=== PATIENT | male | born 1960 | race Caucasian/White ===

== ENCOUNTER 2017-04-02 10:25 | Inpatient (IN) | payer BC ==
[2017-03-13 12:59] VITALS: BMI 29.0
--- NOTE | 2017-03-13 13:32 | PAT Medication Instructions ---
Service Date Mar 13, 2017. Current Home Medication List [Lisinopril/Hctz], 1 TAB PO QAM Medication Instructions For Your Scheduled Surgery - Hold the following medications the morning of surgery: [Lisinopril/Hctz], 1 TAB PO QAM If you have any questions please call us at [phone] or [phone] or [phone]
--- NOTE | 2017-03-13 14:14 | DIAGNOSTIC IMAGING REPORT ---
CHEST PREADMISSION(PA/LAT) CLINICAL HISTORY: PAT preoperative evaluation COMPARISON STUDY: No previous studies for comparison. FINDINGS: The bones soft tissues and hemidiaphragms are normal. The cardiomediastinal silhouette is normal. The lungs are clear. The pulmonary vasculature is normal. IMPRESSION: Negative chest. The above report was generated using voice recognition software. It may contain grammatical, syntax or spelling errors. Electronically signed by: Eduardo Miles M.D. 03/13/2017 2:12 PM Dictated Date/Time: 03/13/2017 2:12 PM
[2017-03-13 14:26] LABS: BASO % 0.4 %; BASO ABS # 0.03 K/uL (0-0.2); COMPLETE YES; EOS % 3.6 %; HEMATOCRIT 44.5 % (42-52); IG% 0.4 %; LYMPH % 26.6 %; LYMPH ABS # 2.13 K/uL (1.2-3.4); MEAN CELL VOLUME 83.3 fL (80-100); MEAN CORPUSCULAR HEMOGLOBIN 29.2 pg (25-34); MEAN CORPUSCULAR HGB CONC 35.1 g/dl (32-36); MEAN PLATELET VOLUME 11.2 fL (7.4-10.4); MONO % 9.6 %; NEUT % 59.4 %; PLATELET COUNT 254 K/uL (130-400); RED BLOOD COUNT 5.34 M/uL (4.7-6.1)
[2017-03-13 14:33] LABS: BUN/CREATININE RATIO 38.4 (10-20); CALCIUM 9.4 mg/dl (8.5-10.1); CREATININE 0.83 mg/dl (0.60-1.40); PARTIAL THROMBOPLASTIN RATIO 1.2; POTASSIUM 3.7 mmol/L (3.5-5.1); PROTHROMBIN TIME (PATIENT) 10.7 SECONDS (9.0-12.0)
--- NOTE | 2017-03-29 17:57 | HISTORY & PHYSICAL EXAMINATION ---
DATE OF ADMISSION: 04/02/2017 CHIEF COMPLAINT: Right knee pain. HISTORY OF PRESENT ILLNESS: The patient is a 56-year-old very active gentleman who presents for surgical treatment of his right knee. He has got a long history of bilateral knee pain and discomfort, right side quite a bit worse than the left. He did have his right knee scoped by Dr. Lanza back in 2009. It provided him some relief for a period of time. Over the past 5 years, he has developed increased pain and discomfort. He describes a constant ache. It has become more debilitating. He has difficulty bending, squatting or going up and down stairs. He has not interested in any more injections or conservative care and would like to have his right knee fixed. It is really affecting his quality of life. PAST MEDICAL HISTORY: Significant for hypertension. PAST SURGICAL HISTORY: Include right knee arthroscopy done in 2009. ALLERGIES. BEE STINGS. CURRENT MEDICINES: Lisinopril/hydrochlorothiazide 12.5/12.5 once a day. SOCIAL HISTORY: A 56-year-old male patient from [place]. 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 with 2 children. 1-2 drinks per day. Does not smoke. REVIEW OF SYSTEMS: Negative for diabetes, neurologic problems, vascular problems, bleeding disorders. No history of blood clots. REVIEW OF SYSTEMS: Negative for diabetes, neurologic problems, vascular problems, bleeding disorders. No chest pain or shortness of breath. No history of DVT or PE. No bleeding problems. PHYSICAL EXAMINATION: GENERAL: Reveals a healthy, pleasant middle-aged female. He looks to be in pretty good health. HEENT: Benign. NECK: Supple. No lymphadenopathy. LUNGS: Clear to auscultation. HEART: Regular rate and rhythm. ABDOMEN: Soft, nontender, nondistended. EXTREMITIES: Grossly neurovascularly intact except as follows: Examination of the right knee reveals the patient walks with a varus thrust and a varus alignment to his knee. He has got bony hypertrophy on the medial side of his knee. A small knee effusion. Range of motion about 5-125. He can do a straight leg raise. No pain with hip motion. X-RAYS: X-rays of the right knee were reviewed. It shows advanced right knee DJD. He has got complete loss of his medial joint space. He has got tibial, femoral subluxation. May have a loose body in the suprapatellar pouch and even some posteriorly. He has got osteophytes in the intercondylar notch as well as the trochlea. ASSESSMENT: A 56-year-old male retired [employer] with advanced right knee degenerative joint disease. He has a history of knee arthroscopy in the past. He has failed conservative treatment and would like to have his right knee replaced. PLAN: We are going to take him to the operating room and do a right total knee replacement. The risks and benefits of this procedure were explained to the patient including but not limited to DVT, PE, , infection, neurological injury, vascular injury, bleeding problem, pain, limited range of motion, stiffness, failure to relieve the symptoms, incomplete relief of symptoms, need for further surgery in the future, fracture, leg length inequality, nerve palsy, etc. The patient understands and desires to proceed. Informed consent was obtained. As far as discharge plans, he is planning to go home with home health and his 's assistance.
[~2017-04-02] VITALS: Ht 180.3 cm; Wt 96.0 kg
[2017-04-02] VITALS (8 sets, daily range): BP systolic 111–141; BP diastolic 62–99; PULSE 53–65; TEMP 36.4–37.7; O2SAT 92–97; Ht 180.3 cm; Wt 96.0 kg
[~2017-04-02 10:25] MED LIST: ACETAMINOPHEN 500 MG TAB PO SCH; ATROPINE SULFATE 0.1 MG/ML 5ML SYR IV PRN; BUPIVACAINE 0.25% 30 ML VIAL ONE; BUPIVACAINE 0.5 % 5 MG/1 ML PF 10ML VIAL ONE; BUPIVACAINE LIPOSOME 266 MG, BUPIVACAINE/EPINEPHRINE INJ 50 ML, SODIUM CHLORIDE 0.9% PF... INFIL SCH; CEFAZOLIN 2000 MG/60 ML D5W IV SCH; EpHEDrine SULFATE INJ 50 MG/ML AMP IV PRN; FAMOTIDINE 20 MG TAB PO SCH; FENTANYL CITRATE INJ 50 MCG/1 ML 2 ML VIAL IV PRN; GABAPENTIN 300 MG CAP PO SCH; HYDROmorphone INJ 1 MG/ML SYR IV PRN; LABETALOL HCL IV 5 MG/ML 20ML IV PRN; LACTATED RINGER'S 1000ML 1,000 ML IV SCH; LACTATED RINGER'S 1000ML 500 ML IV ONE; LISINOPRIL/HCTZ PO; MEPERIDINE HCL 25 MG/ML CARP IV PRN; METOCLOPRAMIDE HCL 10 MG TAB PO SCH; ONDANSETRON INJ 2 MG/ML 2 ML VIAL IV PRN; SCOPOLAMINE 1.5 MG TDSY TD SCH; TRANEXAMIC ACID INJ 1,000 MG in SODIUM CHLORIDE 0.9% 100ML 100 ML IV SCH
[2017-04-02] MEDS ORDERED: MIDAZOLAM HCL 1 MG/ML 2ML VIAL ONE (11:47)
[2017-04-02] MEDS ORDERED: FENTANYL CITRATE INJ 50 MCG/1 ML 2 ML VIAL ONE (11:48)
[2017-04-02] MEDS ORDERED: LIDOCAINE HCL 2% 2 ML VIAL (20MG/ML) ONE (12:05)
[2017-04-02] MEDS ORDERED: ONDANSETRON INJ 2 MG/ML 2 ML VIAL ONE (12:05)
[2017-04-02] MEDS ORDERED: PROPOFOL IV EMULSION 10 MG/ML 20 ML VIAL IV ONE (12:05)
[2017-04-02] MEDS: TRANEXAMIC ACID INJ 1,000 MG in SODIUM CHLORIDE 0.9% 100ML 100 ML IV SCH (12:44)
[2017-04-02] MEDS ORDERED: SODIUM CHLORIDE 0.9% PF 50 ML VIAL ONE (12:57)
[2017-04-02] MEDS ORDERED: BACITRACIN 50000 UNIT VIAL ONE (12:57)
[2017-04-02] MEDS ORDERED: BUPIVACAINE/EPINEPHRINE 0.25% 1:200,000 30 ML VIAL ONE (12:57)
[2017-04-02] MEDS ORDERED: BUPIVACAINE LIPOSOME 1/3% 266 MG/20 ML VIAL INFIL ONE (12:57)
--- NOTE | 2017-04-02 15:02 | [facility] Post Operative Brief Note ---
Immediate Operative Summary Operative Date Apr 02, 2017. Pre-Operative Diagnosis Right knee degenerative joint disease Post-Operative Diagnosis Right knee degenerative joint disease Procedure(s) Performed Right total knee arthroplasty, cemented Surgeon Dr. Dyer Industrial Cook Surgeon(s) Carlos Garland PA-C Estimated Blood Loss 50 mL Findings Right Knee DJD Fluids (cc crystalloids) 1400 cc Specimens A: Right knee bone and tissue Drains None Anesthesia Spinal Complication(s) None Disposition Recovery Room / PACU
[2017-04-02] MEDS ORDERED: OXYCODONE HCL IR 5 MG TAB (IMMEDIATE RELEASE) PO PRN (15:15)
[2017-04-02] MEDS ORDERED: ONDANSETRON INJ 2 MG/ML 2 ML VIAL IV PRN (15:15)
[2017-04-02] MEDS ORDERED: TAMSULOSIN HCL 0.4 MG CAP PO PRN (15:15)
[2017-04-02] MEDS ORDERED: DiphenhydrAMINE HCL 50 MG/ML VIAL IV PRN (15:15)
[2017-04-02] MEDS ORDERED: MoRPHine SULFATE 2 MG/ML CARP IV PRN (15:15)
[2017-04-02] MEDS ORDERED: ALUMINUM/MAGNESIUM/SIMETH (MAALOX MAX) 30 ML UDC PO PRN (15:15)
[2017-04-02] MEDS ORDERED: ZOLPIDEM TARTRATE 5 MG TAB PO PRN (15:15)
[2017-04-02] MEDS ORDERED: METOCLOPRAMIDE HCL INJ 5 MG/ML 2 ML VIAL IV PRN (15:15)
[2017-04-02] MEDS ORDERED: SILVER SULFADIAZINE 1% CR 50 GM JAR EXT PRN (15:15)
[2017-04-02] MEDS ORDERED: MAGNESIUM HYDROXIDE SUSP 30 ML UDC PO PRN (15:15)
[2017-04-02] MEDS ORDERED: BISACODYL 10 MG SUPP PR PRN (15:15)
--- NOTE | 2017-04-02 15:33 | DIAGNOSTIC IMAGING REPORT ---
RIGHT KNEE 2 VIEWS History: Right total knee arthroplasty. Degenerative arthritis. Postop. FINDINGS: The patient is status post a right total knee arthroplasty. The hardware is intact. No fracture or dislocation. Skin joshua are in place. IMPRESSION: Right total knee arthroplasty. No evidence for hardware complication. Electronically signed by: Jhoan Jean M.D. 04/02/2017 3:32 PM Dictated Date/Time: 04/02/2017 3:31 PM
--- NOTE | 2017-04-02 15:57 | Anesthesiology Progress Note ---
Anesthesia Post Op Note Date & Time Apr 02, 2017 at 15:56 Vital Signs Pain Intensity: 0 Vital Signs Past 12 Hours Date Time Temp Pulse Resp B/P (MAP) Pulse Ox O2 Delivery O2 Flow Rate FiO2 04/02/17 15:45 36.5 50 16 131/58 98 Nasal Cannula 2 04/02/17 15:35 46 16 131/76 96 Nasal Cannula 2 04/02/17 15:25 58 20 133/78 100 Oxymask 10 04/02/17 15:15 63 15 137/73 99 Oxymask 10 04/02/17 15:08 36.8 66 18 125/76 99 Oxymask 10 04/02/17 10:55 36.4 59 20 141/99 95 Room Air Notes Mental Status: alert / awake / arousable, participated in evaluation Pt Amnestic to Procedure: Yes Nausea / Vomiting: adequately controlled Pain: adequately controlled Airway Patency, RR, SpO2: stable & adequate BP & HR: stable & adequate Hydration State: stable & adequate Neuraxial Anesthesia: was administered, sensory block is resolving Anesthetic Complications: no major complications apparent
[2017-04-02] MEDS: D5W AND 1/2NSS + 20MEQ KCL 1,000 ML IV SCH ×2 (17:41→21:45)
[2017-04-02] MEDS: KETOROLAC TROMETHAMINE 30 MG/ML VIAL IV. SCH ×2 (18:18→23:50)
[2017-04-02] MEDS: ACETAMINOPHEN 500 MG TAB PO SCH ×2 (18:18→23:50)
[2017-04-02] MEDS: FERROUS GLUCONATE 324 MG TAB PO SCH (18:18)
[2017-04-02] MEDS: DOCUSATE SODIUM 100 MG CAP PO SCH (20:34)
[2017-04-02] MEDS: ASPIRIN 325 MG ECTAB PO SCH (20:34)
[2017-04-02] MEDS: TAPENTADOL ER 50 MG TABCR PO SCH (20:35)
[2017-04-02] MEDS ORDERED: SENNA 8.6 MG TAB PO SCH (21:00)
[2017-04-02] MEDS: CEFAZOLIN IV 2,000 MG in DEXTROSE 5% 50ML 50 ML IV SCH (21:00)
[2017-04-02] MEDS ORDERED: TRANEXAMIC ACID INJ 1,000 MG in SODIUM CHLORIDE 0.9% 100ML 100 ML IV SCH (21:00)
[2017-04-02] MEDS ORDERED: MORP-157 PO (22:18)
[2017-04-02] MEDS ORDERED: ACET-24 PO (22:18)
[2017-04-02] MEDS ORDERED: RXC5 PO (22:18)
[2017-04-02] MEDS ORDERED: ASPEC325 PO (22:18)
--- NOTE | 2017-04-02 22:21 | Discharge Instructions ---
Discharge Instructions Date of Service Apr 02, 2017. Admission Reason for Admission: Right Knee Degenerative Joint Disease Discharge Discharge Diagnosis / Problem: Right Knee Replacement Discharge Goals Goal(s): Decrease discomfort, Improve function, Increase independence, Improve disease control, Therapeutic intervention Activity Recommendations Activity Limitations: per Instructions/Follow-up section Weightbearing Status: Right weightbearing . Instructions / Follow-Up Instructions / Follow-Up ACTIVITY RECOMMENDATIONS: Physical Therapy: * You will go to physical therapy three times each week for four to six weeks after your surgery in order to regain your knee range of motion and to retrain your knee to work properly. * It is just as important to make sure you are getting your knee perfectly straight as it is to regain your knee bend. * Taking a pain pill an hour before therapy can help you have a more productive and comfortable therapy session. Home Exercise: * You were shown a series of exercises (heel props, heel slides, etc.) in the hospital. Do these exercises three to four times each day including the exercises you were shown in physical therapy. Walking: * Get up and walk several times each day. For the first four weeks, try not to stand or walk for more than one hour at a time. If you do stand or walk for more than one hour, you will not hurt anything, but your knee and leg will likely swell. * As you feel comfortable, you may change from the walker or crutches to a cane and then to independent walking. MEDICATIONS: New Medicine: * You will likely be taking one or more of these medications: 1. MS Contin - A long-acting pain medication. Take 1 tablet twice a day for the first ten days to decrease your baseline level of pain. 2. Oxycodone - A quick and shorter-acting pain medication. Take one to two tablets every four to six hours to lessen your pain. 3. Aspirin - Thins your blood to lessen the chance of forming a blood clot. * The most common side effects of pain medicine and iron are nausea and constipation. If nausea or constipation is too much of a problem or if you have any questions about your new medicines or doses, call [facility] at [phone]. We will try to help you manage these issues. VERY IMPORTANT TO READ AND REVIEW" Pain: * The immediate post-operative period after knee replacement surgery is often quite painful. * You are given a prescription for pain medicine. You should take it, as directed, when you need it, especially before physical therapy and before going to bed. Pain that interferes with sleep is very common and can last several months. * You will likely need pain medicine for the first four to six weeks. It will not stop all of the pain. The pain will lessen and as you feel better, you may change to milder pain medicine such as Tylenol. * The most common side effects of pain medicine are nausea and constipation, so don't take more than you need. SPECIAL CARE INSTRUCTIONS: TEDs/Elastic Stockings: * The white elastic stockings help limit swelling and prevent blood clots from forming in your legs. The more you wear them, the more they work. * Wear them for six weeks after knee replacement surgery and four weeks after partial knee replacement. Prevention of Infection: * Take antibiotics one hour before any dental cleaning, dental work, urological procedure, gastrointestinal procedure or any invasive surgery in order to prevent your new joint from getting infected. * You may get the antibiotics from the doctor performing the procedure or you may call our office at before and we will call in a prescription to the pharmacy of your choice. Things to Watch For: * Drainage from the incision site that occurs more than one week after your surgery. * Severely increased knee/leg pain or swelling. * Increased redness at the incision site. * Fever above 102 degrees Fahrenheit. * Unusual chest pain or shortness of breath. * Unusual pain or burning with urination. Call [facility] at with any of the above problems or if you have any questions about your medicines or recovery. FOLLOW UP VISIT: Make an appointment to see your doctor for approximately two weeks after surgery for a progress check and staple removal by calling the office at . Current Hospital Diet Patient's current hospital diet: Regular Diet Discharge Diet Recommended Diet: Regular Diet Procedures Procedures Performed: Right total knee arthroplasty, cemented Pending Studies Studies pending at discharge: no Medical Emergencies . Who to Call and When: Medical Emergencies: If at any time you feel your situation is an emergency, please call [phone] immediately. . Non-Emergent Contact Non-Emergency issues call your: Surgeon . "Provider Documentation" section prepared by Gray Dyer. . VTE Core Measure Inpt VTE Proph given/why not?: Other Anticoagulation, T.E.D. Stockings, SCD's
--- NOTE | 2017-04-02 23:17 | OPERATIVE REPORT ---
DATE OF OPERATION: 04/02/2017 SURGEON: Gray Dyer MD. CARD RUNNER: ELIZABETH Vasquez. PREOPERATIVE DIAGNOSIS: Right knee degenerative joint disease. POSTOPERATIVE DIAGNOSIS: Same. PROCEDURE PERFORMED: Right cemented posterior stabilized total knee arthroplasty. COMPLICATION: None. ESTIMATED BLOOD LOSS: 50 mL FLUID REPLACEMENT: 1400 mL crystalloid fluid replacement. TOURNIQUET TIME: 69 minutes at 300 mmHg. ANESTHESIA: Spinal with adductor canal block. DRAINS: None. SPECIMENS: Right knee sent for pathology. OPERATIVE INDICATIONS: The patient is a 56-year-old very active gentleman who has a long history of right knee pain and discomfort. He has been through extensive conservative treatment. He had a right knee arthroscopy done years ago which provided some temporary relief. For the past 5 years, he has developed increasingly painful knee and debilitation due to his knee pain and discomfort. He has failed all conservative treatment. He elected to proceed with operative treatment. OPERATIVE FINDINGS: Advanced right knee DJD. He had grade 4 [id number] disease in all 3 compartments. He had several large loose bodies throughout his knee, particularly in the suprapatellar pouch. He had eburnation of the medial femoral condyle and medial tibial plateau. Osteophytes in all 3 compartments. He had very large knee joint effusion. He had a fixed varus deformity to his knee. OPERATIVE IMPLANTS: Operative implants consisted of: 1. Biomet Vanguard size 72.5 right posterior stabilized femoral component. 2. Biomet size 79 tibial tray. 3. A 12 mm posterior stabilized polyethylene insert. 4. A 34 x 8.5 all poly patella. OPERATIVE PROCEDURE: The patient was taken to the operating room, identified and placed on the operating table in supine position. All contact areas were appropriately padded. IV antibiotics provided by anesthesia team. A spinal anesthetic and adductor canal block had been provided in the holding area. Fry catheter was placed in sterile fashion. A right thigh tourniquet was then placed. Right lower extremity was then prepped and draped in usual sterile fashion. The right leg was elevated and exsanguinated with Esmarch and tourniquet was placed at 300 mmHg. An anterior approach to the right knee was then performed through a longitudinal incision centered over the patella. Sharp dissection was carried out through the subcutaneous tissues down to the level of the extensor mechanism. A medial parapatellar arthrotomy incision was made. Some subperiosteal dissection was carried out medially. The fat pad was resected from beneath the patellar tendon. Lateral patellofemoral ligament was released. The patella was very large and thick, therefore, I elected to cut the patella first. The patella was cleaned of all soft tissues. The knee was brought out into full extension. The patella thickness measured 28 mm, cut down to 15. It was sized to a size 34 patella. I removed the lateral osteophyte but I did not drill the holes for the patella until the very end of the case. The patella was then subluxated laterally. The knee was flexed. The osteophytes were taken off the distal femur. The ACL and PCL were then released from the distal femur and the tibia subluxated anteriorly. The external tibial alignment jig was then placed on the anterior face of the tibia and adjusted 16 mm medially. Proximal tibial cut was made to remove about a millimeter of bone from the most deficient aspect of the posteromedial tibial plateau. The tibia was sized to a size 79. Some osteophytes were taken off medial and posteromedially. Attention was then drawn to the femur. The distal femur was entered with a sharp drill. Intramedullary canal was suctioned. A 6-degree valgus cutting guide was placed. Distal femoral cutting block was pinned in place. Distal femoral cut was made to take an additional 3 mm of bone off the distal femur. The femur was then sized to a size 72.5. We did downsize this slightly. The AP cutting block was pinned parallel to the epicondylar axis which was 4 degrees of external rotation. The anterior cut, anterior chamfer cut, posterior cut, posterior chamfer cuts were made. Box cutting guide was placed and adjusted slightly lateral and box cut was made. The knee was flexed. The remnants of the medial and lateral menisci were excised. The osteophytes were taken off the posterior aspect of the femur. A trial femoral component was placed. Tibial tray was pinned in maximum external rotation, and the drill and stem punch were used to create defect in proximal tibia for the tibial tray. The knee was then trialed and 12 mm insert fit most appropriately. Of note, we did a very extensive medial and posteromedial release to get his knee out of varus. Attention was then drawn back to the patella. The patella was prepared for a 34 patella. Lug holes were drilled for the 34 patella. The patellar button was placed. Knee was taken through range of motion and the patella tracked nicely with no thumbs test. Attention was then drawn toward placement of permanent components. All trial components were removed. A bone plug was placed in the distal femur to limit blood loss. A double batch of Palacos G cement was mixed. A right size 72.5 posterior stabilized femoral component, size 79 tibial tray, 12 mm posterior stabilized polyethylene insert, and a 34 x 8.5 all poly patella were then cemented in place. The knee was brought out into full extension until cement hardened. A final cement check was then performed. The pericapsular tissues were injected with 100 mL of combination of 20 mL of Exparel, 30 mL of normal saline and 50 mL of 0.25% Marcaine with epinephrine. The patient did receive 1 gram of tranexamic acid. The tourniquet was then let down for a final tourniquet time of 59 minutes. Hemostasis was assured with use of electrocautery. The wound was once again irrigated. The extensor mechanism was then closed with a combination of #1 PDS suture and #1 Vicryl suture in a [id number] fashion. Extensor mechanism was checked and found to be intact. Subcutaneous tissues were then closed with 2-0 Dexon suture in a buried interrupted fashion. Skin was closed with skin joshua. Leg was then cleaned and dried, and a sterile dressing of Xeroform, 4 x 4's, sterile cast padding and Christopher bandage was applied. The patient was then transferred to the recovery room in stable condition. The patient tolerated the procedure well with no complications. All needle and sponge counts were correct at the end of the operation. I attest to the content of the Intraoperative Record and any orders documented therein. Any exception s are noted below.
[2017-04-03] MEDS: CEFAZOLIN IV 2,000 MG in DEXTROSE 5% 50ML 50 ML IV SCH (04:00)
[2017-04-03] MEDS: D5W AND 1/2NSS + 20MEQ KCL 1,000 ML IV SCH ×2 (04:00→12:27)
[2017-04-03 04:25] VITALS: BP 109/65; PULSE 63; TEMP 36.9; O2SAT 97
[2017-04-03] MEDS: KETOROLAC TROMETHAMINE 30 MG/ML VIAL IV. SCH ×2 (06:08→12:27)
[2017-04-03 06:58] LABS: HEMATOCRIT 34.2 % (42-52); MEAN CELL VOLUME 86.4 fL (80-100); MEAN CORPUSCULAR HEMOGLOBIN 30.8 pg (25-34); MEAN CORPUSCULAR HGB CONC 35.7 g/dl (32-36); MEAN PLATELET VOLUME 10.7 fL (7.4-10.4); PLATELET COUNT 141 K/uL (130-400); RED BLOOD COUNT 3.96 M/uL (4.7-6.1); WHITE BLOOD COUNT 7.79 K/uL (4.8-10.8)
[2017-04-03 07:22] LABS: BUN/CREATININE RATIO 19.8 (10-20); CREATININE 0.93 mg/dl (0.60-1.40); POTASSIUM 4.7 mmol/L (3.5-5.1)
--- NOTE | 2017-04-03 07:35 | Orthopedic Progress Note ---
Orthopedic Progress Note Date of Service Apr 03, 2017. Subjective Additional Notes: POD #1 from Right TKA. Pain is controlled. He has noticed some clicking in his knee when up and ambulatory yesterday. No other complaints. Objective N/V intact, dressing C/D/I, A&O x3, toes mobile Date Time Temp Pulse Resp B/P (MAP) Pulse Ox O2 Delivery O2 Flow Rate FiO2 04/03/17 04:25 36.9 63 16 109/65 (80) 97 Room Air 04/02/17 23:57 Room Air 04/02/17 23:30 36.9 65 17 129/79 (96) 97 Room Air 04/02/17 19:00 37.7 58 18 126/73 (90) 94 Room Air 04/02/17 17:53 36.4 61 16 115/64 (81) 94 Room Air 2.0 04/02/17 17:01 36.4 64 18 111/64 (80) 92 Room Air 04/02/17 16:44 97 Room Air 04/02/17 16:29 36.5 54 20 113/67 (82) 97 Nasal Cannula 2.0 04/02/17 16:00 36.4 53 14 115/62 (79) 93 Nasal Cannula 2.0 04/02/17 16:00 Nasal Cannula 2.0 04/02/17 16:00 93 Nasal Cannula 2.0 04/02/17 15:45 36.5 50 16 131/58 98 Nasal Cannula 2 04/02/17 15:35 46 16 131/76 96 Nasal Cannula 2 04/02/17 15:25 58 20 133/78 100 Oxymask 10 04/02/17 15:15 63 15 137/73 99 Oxymask 10 04/02/17 15:08 36.8 66 18 125/76 99 Oxymask 10 04/02/17 10:55 36.4 59 20 141/99 95 Room Air Laboratory Results 24 Hours: Test 04/03/17 06:44 Hematocrit 34.2 % Hemoglobin 12.2 g/dL Assessment & Plan Assessment: POD #1 Right TKA Discharge Planning Discharge Planning: home with home health Pain Management: other (pain currently controlled. ) DVT Prophylaxis: TEDs, SCDs, ASA (Aspirin 325mg BID ) Therapy: Physical Therapy, Occupational Therapy Discharge Planning Notes: Discussed the clicking with him and don't feel that it is anything to be concerned with at this point. He was seen and examined by Dr. Dyer today. We will plan to discharge him home with home health
[2017-04-03 08:19] VITALS: BP 119/70; PULSE 63; TEMP 36.4; O2SAT 91
[2017-04-03] MEDS: FERROUS GLUCONATE 324 MG TAB PO SCH (08:46)
[2017-04-03] MEDS: DOCUSATE SODIUM 100 MG CAP PO SCH (08:46)
[2017-04-03] MEDS: TAPENTADOL ER 50 MG TABCR PO SCH (08:46)
[2017-04-03] MEDS: ASPIRIN 325 MG ECTAB PO SCH (08:47)
[2017-04-03] MEDS: ACETAMINOPHEN 500 MG TAB PO SCH (08:48)
[2017-04-03] MEDS ORDERED: PANTOprazole SOD 40 MG TAB PO SCH (09:00)
[2017-04-03] MEDS ORDERED: LISINOPRIL/HCTZ 10/12.5MG TAB PO SCH (09:00)
[2017-04-03] MEDS ORDERED: MULTIVITAMIN TAB PO SCH (09:00)
[2017-04-03 12:23] VITALS: BP 122/64; PULSE 66; TEMP 36.7; O2SAT 99
--- NOTE | 2017-04-10 13:49 | DISCHARGE SUMMARY ---
ADMITTING PHYSICIAN AND SURGEON: Dr. Dyer. ADMITTING DIAGNOSIS: Right knee degenerative joint disease. SURGERY PERFORMED: Right total knee arthroplasty. SECONDARY DIAGNOSIS: Hypertension. CONSULTS: None obtained. HISTORY AND PHYSICAL EXAMINATION: Well documented in the patient's chart. HOSPITAL COURSE: The patient was admitted on 04/02/2017 underwent total knee arthroplasty, tolerated the procedure well. There were no complications. He was transferred to the PACU postoperatively and later to the orthopedic floor for further care. He was given Ancef for antibiotic prophylaxis, LATOSHA stockings, SCDs and aspirin for DVT prophylaxis. Hemoglobin, hematocrit and vital signs were monitored during his hospital stay and remained stable. He did not require any blood transfusions. There were no complications. By postoperative day 1, he was tolerating a general diet. Pain was controlled with oral pain medicine. He was participating in physical therapy and had no signs or symptoms of deep vein thrombosis. On postop day 1, he was discharged home and set up with home health services, given printed discharge instructions including new prescriptions for extra strength Tylenol, aspirin 325 mg b.i.d., MS Contin and oxycodone. Continue his home medications. Continue physical therapy, weightbearing as tolerated, LATOSHA stockings. Follow up in 10-12 days or sooner if there are any problems or concerns.
== END 2017-04-03 13:07 | disposition home health service (06) | DRG 470 ==
LOC: C.ACU 10:25 → C.3E 10:50 → ENRESERV 15:32
PROVIDERS: ADMIT Orthopaedic Surgery Sports Medicine; ATTEND Orthopaedic Surgery Sports Medicine
PROC: 0SRC0J9 Replacement of Right Knee Joint with Synthetic Substitute, Cemented, Open Approach (ICD-10-PCS; principal; 2017-04-02 13:00)
DX: M17.11 Unilateral primary osteoarthritis, right knee (principal); I10 Essential (primary) hypertension

== ENCOUNTER → 2017-08-20 | Outpatient (CLI) | payer BC ==
[~2017-08-20] MED LIST changes: +ACET-24 PO; -ACETAMINOPHEN 500 MG TAB PO SCH; +ASPEC325 PO; -ATROPINE SULFATE 0.1 MG/ML 5ML SYR IV PRN; -BUPIVACAINE 0.25% 30 ML VIAL ONE; -BUPIVACAINE 0.5 % 5 MG/1 ML PF 10ML VIAL ONE; -BUPIVACAINE LIPOSOME 266 MG, BUPIVACAINE/EPINEPHRINE INJ 50 ML, SODIUM CHLORIDE 0.9% PF... INFIL SCH; -CEFAZOLIN 2000 MG/60 ML D5W IV SCH; -EpHEDrine SULFATE INJ 50 MG/ML AMP IV PRN; -FAMOTIDINE 20 MG TAB PO SCH; -FENTANYL CITRATE INJ 50 MCG/1 ML 2 ML VIAL IV PRN; -GABAPENTIN 300 MG CAP PO SCH; -HYDROmorphone INJ 1 MG/ML SYR IV PRN; -LABETALOL HCL IV 5 MG/ML 20ML IV PRN; -LACTATED RINGER'S 1000ML 1,000 ML IV SCH; -LACTATED RINGER'S 1000ML 500 ML IV ONE; -MEPERIDINE HCL 25 MG/ML CARP IV PRN; -METOCLOPRAMIDE HCL 10 MG TAB PO SCH; -ONDANSETRON INJ 2 MG/ML 2 ML VIAL IV PRN; +RXC5 PO; -SCOPOLAMINE 1.5 MG TDSY TD SCH; -TRANEXAMIC ACID INJ 1,000 MG in SODIUM CHLORIDE 0.9% 100ML 100 ML IV SCH
--- NOTE | 2017-08-20 10:22 | DIAGNOSTIC IMAGING REPORT ---
[facility] CLINICAL HISTORY: R10.9 Right flank [id number] COMPARISON STUDY: No previous studies for comparison. FINDINGS: There is no pathologic bowel dilatation. The renal shadows are partially obscured overlying bowel gas and fecal material. No renal calculi are visualized. There are no definite ureteral calcifications. IMPRESSION: 1. No pathologic bowel dilatation 2. No urinary tract calculi identified on conventional radiographic imaging Electronically signed by: Elliott Pacheco M.D. 08/20/2017 10:20 AM Dictated Date/Time: 08/20/2017 10:19 AM
--- NOTE | 2017-08-20 13:29 | DIAGNOSTIC IMAGING REPORT ---
R RIBS UNILATERAL MIN 2 VIEWS CLINICAL HISTORY: 57 years-old Male presenting with R10.9 Right flank [id number]. TECHNIQUE: Frontal and oblique views of the right ribs were obtained as well as PA view of the chest. COMPARISON: Chest x-ray from 03/13/2017. FINDINGS: Atherosclerosis of aortic arch. Cardiac silhouette top normal in size. Lungs and pleural spaces clear. Degenerative changes of the spine. No displaced right rib fracture. IMPRESSION: 1. No displaced right rib fracture. 2. No acute cardiopulmonary disease. Electronically signed by: Florian Watson M.D. 08/20/2017 1:28 PM Dictated Date/Time: 08/20/2017 10:20 AM
== END | disposition home or self-care (01) ==
LOC: C.RADBC 09:47
PROVIDERS: ATTEND Physician Assistant Medical
DX: Z00.00 Encounter for general adult medical examination without abnormal findings (principal); R10.9 Unspecified abdominal pain